=== PATIENT | male | born 1995 | race Caucasian/White ===

== ENCOUNTER 2017-07-22 19:38 | Emergency (ER) | payer OTHER ==
[~2017-07-22] VITALS: Ht 182.9 cm; Wt 66.0 kg
[2017-07-22 19:40] VITALS: BP 132/82; PULSE 87; RESP 16; TEMP 98; O2SAT 98
[2017-07-22] MEDS ORDERED: ALBU6.7H INH (20:33)
[2017-07-22] MEDS ORDERED: AZIT250T3 PO (20:33)
[2017-07-22] MEDS ORDERED: BENZ100 PO (20:33)
--- NOTE | 2017-07-22 20:34 | PD ---
HPI Chief Complaint: Cold / Flu Symptoms Time Seen by Provider: 19:59 Travel History International Travel<30 days: No Contact w/Intl Traveler<30days: No Traveled to known affect area: No History of Present Illness HPI 21 yo M c/o 8 days cough and dyspnea at times. + Phlegm production. No hemoptysis. + Epistaxis last two days which resolves spontaneously. Pt vapes. He denies smoking. Pt works at a [employer] restaurant. Subjective fever reported. DayQuil and NyQuil have not been helpful. Whitehead's have not been helpful. He reports sore throat worse after coughing spells. PFSH Past Medical History Medical History: Denies Significant Hx Past Surgical History Tonsillectomy: Yes Social History Alcohol Use: Yes (2XS WEEKLY) Tobacco Use: Yes (VAPORIZER) Substance Use: No Allergies-Medications (Allergen,Severity, Reaction): Coded Allergies: No Known Allergies (Unverified , 07/22/17) Reported Meds & Prescriptions Reported Meds & Active Scripts Active No Active Prescriptions or Reported Medications Review of Systems Except as stated in HPI: all other systems reviewed are Neg General / Constitutional: Positive: Fever (subjective) Respiratory: Positive: Cough Physical Exam Narrative GENERAL: Well-nourished well-developed 21-year-old male sitting upright in bed and speaking full sentences using his smart phone SKIN: Warm and dry. HEAD: Atraumatic. Normocephalic. EYES: Pupils equal and round. No scleral icterus. No injection or drainage. ENT: No nasal bleeding or discharge. Mucous membranes pink and moist. Trace erythema about the oropharynx posteriorly NECK: Trachea midline. No JVD. No anterior neck adenopathy. CARDIOVASCULAR: Regular rate and rhythm. RESPIRATORY: There is trace wheezing occasionally. The lungs are otherwise clear. Speaking in full sentences GASTROINTESTINAL: Abdomen soft, non-tender, nondistended. Hepatic and splenic margins not palpable. MUSCULOSKELETAL: Extremities without clubbing, cyanosis, or edema. No obvious deformities. NEUROLOGICAL: Awake and alert. No obvious cranial nerve deficits. Motor grossly within normal limits. Five out of 5 muscle strength in the arms and legs. Normal speech. PSYCHIATRIC: Appropriate mood and affect; insight and judgment normal. Data Data Last Documented VS Vital Signs Date Time Temp Pulse Resp B/P (MAP) Pulse Ox O2 Delivery O2 Flow Rate FiO2 07/22/17 19:40 98.0 87 16 132/82 (99) 98 Room Air Vital signs reviewed MDM Medical Decision Making Medical Screen Exam Complete: Yes Emergency Medical Condition: Yes Medical Record Reviewed: Yes Differential Diagnosis Viral syndrome strep throat pneumonia bronchitis Narrative Course Patient reports receiving a flu shot a week ago by the way. Presentation is considered potentially consistent with a walking pneumonia another consideration would be bronchitis. In either case the pt will receive Decadron Tessalon Perles and azithromycin and albuterol inhaler. Diagnosis Primary Impression: Atypical pneumonia Referrals: Primary Care Physician 2 days Med/Other Pt SpecificInfo: Prescription(s) given Scripts Benzonatate (Tessalon Perles) 100 Mg Cap 200 MG PO TID Y for COUGH, #12 CAP 0 Refills Prov: Cliff Jaime MD 07/22/17 Albuterol 6.7 GM Inh (Proventil Hfa 6.7 GM Inh) 90 Mcg/Act Aer 2 PUFF INH Q6H Y for SHORTNESS OF BREATH, #1 INHALER 0 Refills Prov: Cliff Jaime MD 07/22/17 Azithromycin (Azithromycin) 250 Mg Tab 250 MG PO DIRECTED for Infection, #6 TAB 0 Refills Take 2 tabs (500 mg) on day 1 then 1 tab daily x 4 days. Prov: Cliff Jaime MD 07/22/17 Disposition: 01 DISCHARGE HOME Condition: Stable Cliff Jaime MD Jul 22, 2017 20:34
[2017-07-22] MEDS ORDERED: DEXAMETHASONE SOD PHOS 4 MG/ML VIAL IM ONE (20:45)
[2017-07-22] MEDS ORDERED: ALBUTEROL SULFATE 90 MCG/ACT HFA 8 GM INHALER INH ONE (20:45)
== END 2017-07-22 21:12 | disposition home or self-care (01) ==
LOC: NEPD 19:38
DX: J18.9 Pneumonia, unspecified organism (principal); Z72.0 Tobacco use
CPT/HCPCS: 96372; 99284; J1100